=== PATIENT | male | born 1980 | race Two or more races ===

== ENCOUNTER 2019-05-11 09:59 | Emergency (ER) | payer MEDICAID ==
[~2019-05-11] VITALS: Ht 177.8 cm; Wt 84.0 kg
[2019-05-11 10:10] VITALS: BP 125/85
[2019-05-11] MEDS ORDERED: IBUP-2029 PO (10:17)
[2019-05-11 11:21] LABS: INR 1.1; PROTHROMBIN TIME 11.5 sec (9.6-11.0)
[2019-05-11 11:24] LABS: BASOPHILS % 1.2 % (0.0-2.0); EOSINOPHILS % 1.2 % (0.0-5.0); HEMATOCRIT. 36.4 % (42.0-52.0); HEMOGLOBIN. 12.4 g/dL (14.0-18.0); LYMPHOCYTES % 24.8 % (20.0-50.0); MEAN CORPUSCULAR HEMOGLOBIN 31.1 pg (28.0-32.0); MEAN CORPUSCULAR VOLUME 91.5 fL (80.0-94.0); MEAN PLATELET VOLUME 7.8 fl (7.4-10.4); NEUTROPHILS % 58.8 % (40.0-76.0); PLATELET 218 x1000/uL (130-400); RED BLOOD CELL COUNT 3.99 mill/uL (4.7-6.1); RED CELL DISTRIBUTION WIDTH 15.4 % (11.6-14.6)
[2019-05-11 11:29] LABS: CHLORIDE 101 mEq/L (98-107)
[2019-05-11] MEDS ORDERED: POTASSIUM CHLORIDE 20MEQ TABLET SR PO ONE (12:00)
== END 2019-05-11 12:26 | disposition home or self-care (01) ==
LOC: ER 10:08
DX: K70.10 Alcoholic hepatitis without ascites (principal); F10.20 Alcohol dependence, uncomplicated; E87.6 Hypokalemia; M79.632 Pain in left forearm; M79.631 Pain in right forearm; F12.10 Cannabis abuse, uncomplicated; Y90.9 Presence of alcohol in blood, level not specified; Z98.890 Other specified postprocedural states
CPT/HCPCS: 36415; 80053; 85025; 99283

== ENCOUNTER 2020-01-18 15:04 | Emergency (ER) | payer MEDICAID ==
[~2020-01-18] VITALS: Ht 175.3 cm; Wt 86.0 kg
[~2020-01-18 15:04] MED LIST: IBUP-2029 PO
[2020-01-18 15:19] VITALS: BP 123/78
[2020-01-18] MEDS ORDERED: BACITRACIN ZINC OINT UDPKT TOP ONE (16:00)
[2020-01-18] MEDS ORDERED: TETANUS, DIPHTHERIA, PERTUSSIS VAC/PF 0.5ML (>7YR OLD) IM ONE (16:00)
[2020-01-18] MEDS ORDERED: LIDOCAINE HCL/PF 1% 10 MG/ML 5ML VIAL IJ ONE (16:00)
== END 2020-01-18 17:53 | disposition home or self-care (01) ==
LOC: ER 15:04
DX: S60.452A Superficial foreign body of right middle finger, initial encounter (principal); L03.011 Cellulitis of right finger; F12.10 Cannabis abuse, uncomplicated; W45.8XXA Other foreign body or object entering through skin, initial encounter; Y93.89 Activity, other specified; Y92.89 Other specified places as the place of occurrence of the external cause
CPT/HCPCS: 90471; 90715; 99283; J3490; Z7610

== ENCOUNTER 2023-11-12 21:08 | Inpatient (IN) | payer MEDICAID ==
[~2023-11-12] VITALS: Ht 175.3 cm; Wt 64.9 kg
[2023-11-12 23:39] LABS: BASOPHILS % 1.3 % (0.0-2.0); DIFFERENTIAL COMMENT 0; HEMATOCRIT. 38.3 % (42.0-52.0); HEMOGLOBIN. 13.1 g/dL (14.0-18.0); LYMPHOCYTES % 36.6 % (20.0-50.0); MEAN CORPUSCULAR HEMOGLOBIN 34.7 pg (28.0-32.0); MEAN CORPUSCULAR HGB CONC 34.2 g/dL (31.0-37.0); MEAN CORPUSCULAR VOLUME 101.6 fL (80.0-94.0); MEAN PLATELET VOLUME 6.4 fl (7.4-10.4); MONOCYTES % 7.1 % (2.0-8.0); PLATELET 336 x1000/uL (130-400); RED BLOOD CELL COUNT 3.77 mill/uL (4.7-6.1); RED CELL DISTRIBUTION WIDTH 13.4 % (11.6-14.6); WHITE BLOOD COUNT 6.1 x1000/uL (4.5-11.0)
[2023-11-12 23:54] LABS: CHLORIDE 108 mEq/L (98-107); POTASSIUM 3.2 mEq/L (3.5-5.1); SODIUM 143 mEq/L (136-145)
[2023-11-12 23:55] LABS: CALCIUM 9.1 mg/dL (8.7-10.4); CARBON DIOXIDE 24 mEq/L (21-32)
[2023-11-13] LABS: CREATININE 0.7 mg/dL (0.6-1.3); GLUCOSE 104 mg/dL (70-105)
[2023-11-13 00:02] LABS: ACETAMINOPHEN < 2 ug/mL (10-30)
[2023-11-13 00:38] LABS: UREA NITROGEN BLOOD < 5 mg/dL (9-23)
[2023-11-13 00:46] LABS: ETHANOL BLOOD 505 mg/dL (<10)
[2023-11-13] MEDS ORDERED: IPRATROPIUM/ALBUTEROL 0.5-3(2.5)MG/3ML NEB NEB PRN (08:30)
[2023-11-13] MEDS ORDERED: ACETAMINOPHEN 325MG TABLET PO PRN (08:30)
[2023-11-13] MEDS ORDERED: DOCUSATE SODIUM 100MG CAPSULE PO PRN (08:30)
[2023-11-13] MEDS ORDERED: MAGNESIUM/ALUMINUM HYDROXIDE/SIMETHICONE 30ML UDC PO PRN (08:30)
[2023-11-13] MEDS: POTASSIUM CHLORIDE 20MEQ TABLET SR PO NR (08:30)
[2023-11-13] MEDS ORDERED: CLONIDINE 0.1MG TABLET PO PRN (08:30)
[2023-11-13] MEDS ORDERED: NITROGLYCERIN 0.4MG TABLET SL SL PRN (08:30)
[2023-11-13] MEDS ORDERED: GUAIFENESIN 200MG/10ML SUGAR FREE UDC PO PRN (08:30)
[2023-11-13 09:00] VITALS: BP 106/74; PULSE 74; RESP 19; TEMP 36.5292
[2023-11-13] MEDS: ENOXAPARIN 40MG/0.4ML SYR SUBCUT SCH (09:00)
[2023-11-13] MEDS: FAMOTIDINE 20MG TABLET PO SCH (09:00)
[2023-11-13] MEDS: DEXAMETHASONE 4MG TABLET PO SCH (09:57)
[2023-11-13 12:00] VITALS: BP 111/80; PULSE 98; RESP 17; TEMP 37.28076; O2SAT 98
[2023-11-13] MEDS: MVI, ADULT NO.1 10 ML, FOLIC ACID 1 MG, THIAMINE HCL 100 MG in SODIUM CHLORIDE 0.9% 1,0... IV ONE (12:33)
[2023-11-13 13:18] LABS: IRON 148 ug/dL (65-175)
[2023-11-13 13:19] LABS: LDL CHOLESTEROL 104 mg/dL (5-100); TRIGLYCERIDE 89 mg/dL (0-150)
[2023-11-13 13:21] LABS: CHOLESTEROL 181 mg/dL (<200); HDL CHOLESTEROL 65 mg/dL (>55); TOTAL IRON BINDING CAPACITY 422 ug/dl (250-425)
[2023-11-13 13:23] LABS: THYROID STIMULATING HORMONE 1.84 uIU/mL (0.55-4.78)
[2023-11-13 13:26] LABS: FOLIC ACID (FOLATE) SERUM 14.57 ng/mL (>5.38); VITAMIN B12 SERUM 729 pg/mL (211-911)
[2023-11-13 16:00] VITALS: BP 109/80; PULSE 109; RESP 18; TEMP 36.44736; O2SAT 97
[2023-11-13] MEDS: LORAZEPAM 0.5MG TABLET PO PRN (16:47)
[2023-11-13] MEDS: ONDANSETRON HCL 4MG/2ML INJ IV PRN (16:52)
[2023-11-13] MEDS: ZOLPIDEM TARTRATE 5MG TABLET PO PRN (20:41)
[2023-11-13] MEDS: ACETAMINOPHEN 325MG TABLET PO PRN (20:41)
[2023-11-14 06:12] LABS: BASOPHILS % 1.3 % (0.0-2.0); EOSINOPHILS % 0.8 % (0.0-5.0); HEMATOCRIT. 38.6 % (42.0-52.0); HEMOGLOBIN. 13.2 g/dL (14.0-18.0); MEAN CORPUSCULAR HGB CONC 34.2 g/dL (31.0-37.0); MEAN CORPUSCULAR VOLUME 99.5 fL (80.0-94.0); MONOCYTES % 12.4 % (2.0-8.0); NEUTROPHILS % 63.5 % (40.0-76.0); PLATELET 298 x1000/uL (130-400); RED BLOOD CELL COUNT 3.88 mill/uL (4.7-6.1); RED CELL DISTRIBUTION WIDTH 12.8 % (11.6-14.6); WHITE BLOOD COUNT 6.8 x1000/uL (4.5-11.0)
[2023-11-14 06:16] VITALS: PULSE 88; RESP 20; TEMP 37.16964; O2SAT 100
[2023-11-14 06:18] LABS: CHLORIDE 102 mEq/L (98-107); POTASSIUM 3.7 mEq/L (3.5-5.1); SODIUM 135 mEq/L (136-145)
[2023-11-14 06:21] LABS: CALCIUM 9.5 mg/dL (8.7-10.4); CARBON DIOXIDE 27 mEq/L (21-32)
[2023-11-14 06:26] LABS: CREATININE 0.7 mg/dL (0.6-1.3); GLUCOSE 102 mg/dL (70-105); UREA NITROGEN BLOOD 5 mg/dL (9-23)
[2023-11-14 06:28] LABS: ALANINE AMINOTRANSFERASE 35 IU/L (10-49); ALBUMIN 4.3 g/dL (3.2-4.8); ASPARTATE AMINOTRANSFERASE 45 IU/L (<34); BILIRUBIN TOTAL 1.4 mg/dL (0.1-1.0); PHOSPHORUS 4.2 mg/dL (2.5-4.9); PROTEIN TOTAL 7.1 g/dL (6.0-8.3)
[2023-11-14 08:00] VITALS: BP 110/79; PULSE 83; RESP 20; TEMP 36.6696; TEMP 36.66960; O2SAT 99
[2023-11-14] MEDS ORDERED: THIA50TA12 MT (09:00)
[2023-11-14] MEDS ORDERED: MULT-1116 MT (09:00)
[2023-11-14] MEDS ORDERED: FOLI-43 MT (09:00)
[2023-11-14 11:10] VITALS: BP 110/79; PULSE 83; TEMP 98; O2SAT 99
== END 2023-11-14 11:45 | disposition home or self-care (01) | DRG 425 ==
LOC: ER 21:08 → 7EST 11-13 04:14 → EDBEDREQTM 11-13 04:44 → EDBEDREQ 11-13 04:44 → 7EST 11-13 08:48
PROVIDERS: ADMIT Internal Medicine; ATTEND Internal Medicine
DX: E87.6 Hypokalemia (principal); F10.121 Alcohol abuse with intoxication delirium; D64.9 Anemia, unspecified; R47.81 Slurred speech; F17.200 Nicotine dependence, unspecified, uncomplicated; Z79.899 Other long term (current) drug therapy
CPT/HCPCS: 36415; 71045; 80048; 80053; 80061; 80307; 80320; 80329; 82607; 82746; 83036; 83540; 83550; 83735; 84100; 84443; 85025; 93970; 99285; J1650; J2405; J3411; J3490; J7030; G0480

== ENCOUNTER 2023-12-09 12:19 | Emergency (ER) | payer MEDICAID ==
[~2023-12-09] VITALS: Ht 175.3 cm; Wt 73.0 kg
[~2023-12-09 12:19] MED LIST changes: +FOLI-43 MT; -IBUP-2029 PO; +MULT-1116 MT; +THIA50TA12 MT
[2023-12-09 12:23] VITALS: O2SAT 98
[2023-12-09] MEDS: TETANUS, DIPHTHERIA, PERTUSSIS VAC/PF 0.5ML (>10YR OLD) IM ONE (12:55)
[2023-12-09 15:52] VITALS: BP 97/53; PULSE 97; RESP 17; TEMP 36.89184; O2SAT 98
== END 2023-12-09 15:49 | disposition home or self-care (01) ==
LOC: ER 12:19
DX: S09.90XA Unspecified injury of head, initial encounter (principal); F10.129 Alcohol abuse with intoxication, unspecified; X58.XXXA Exposure to other specified factors, initial encounter; Y93.89 Activity, other specified; Y92.89 Other specified places as the place of occurrence of the external cause; Y99.8 Other external cause status; Y90.9 Presence of alcohol in blood, level not specified
CPT/HCPCS: 70486; 82962; 90471; 90715; 99285